=== PATIENT | female | born 1940 | race Caucasian/White ===

== ENCOUNTER 2016-07-19 10:43 | Inpatient (IN) | payer OTHER ==
[2016-07-03 13:04] VITALS: BMI 26.0
[2016-07-19] VITALS (7 sets, daily range): BP systolic 144–187; BP diastolic 76–86; PULSE 77–95; TEMP 36.6–36.8; O2SAT 92–98; Ht 154.9 cm; Wt 63.5 kg
[~2016-07-19] VITALS: Ht 154.9 cm; Wt 63.5 kg
[~2016-07-19 10:43] MED LIST: ADVIN25050 INH; AMLO-114 PO; BNC/40 PO; BYS/5 PO; CALC1TAB62 PO; CEFAZOLIN 2000 MG/60 ML D5W 60 ML IV SCH; DILT120C51 PO; DTRSR10 PO; ERGO1CAP41 PO; EZET10TA47 PO; FENTANYL CITRATE INJ 50 MCG/1 ML 2 ML VIAL ONE; FERR1TAB23 PO; LACTATED RINGER'S 1000ML IV SCH; LVMI SQ; MAGN400T6 PO; MIDAZOLAM HCL 1 MG/ML 2ML VIAL ONE; NTRGSL/4 UT; NVLG SQ; NXM/40 PO; ONDA4TAB46 PO; PLQ200 PO; PREGABALIN 75 MG CAP PO SCH; SYN75 PO; TRAM-10 PO; WARF-246 PO
[2016-07-19] MEDS ORDERED: NIFE30TA83 PO (11:55)
[2016-07-19] MEDS ORDERED: lovenox SC (11:55)
[2016-07-19 12:05] LABS: PARTIAL THROMBOPLASTIN RATIO 1.1; PROTHROMBIN TIME (PATIENT) 10.7 SECONDS (9.0-12.0)
--- NOTE | 2016-07-19 12:24 | History and Physical ---
History & Physical Date Jul 19, 2016. Chief Complaint LBP and severe bilateral leg pain, left greater than right History of Present Illness The patient is a 75 year old female with complaints of above due to a large L3- 4 HNP demonstrated on MRI. she was markedly debilitated as outpatient and had poor pain control. no incontinence. no dona weakness. prior L5 laminectomy and possible L4-5 autofusion. she was on coumadin which was held preop. she was cleared by pcp and deemed intermediate risk by cards for surgery. Past Medical/Surgical History anemia CAD COPD carotid stenosis diabetes reflux hypothyroidism hx of CVA hi chol R CEA michael MENDZE L CEA LTKA Additional History Hepatic Disease: No Endocrine Disorder: Yes Kidney Disease: No Hypertension: Yes Heart Disease: Yes Bleeding Tendencies: No Infectious Diseases: No Allergies Coded Allergies: Sulfa Antibiotics (Verified Allergy, Unknown, RASH AND HIVES, 07/17/16) Home Medications Scheduled Calcium & Phosphorus W/ Vitami (Calcium), 1 TAB PO QAM Ergocalciferol (Vitamin D 31264 Unit), 1 TAB PO SUNDAY Esomeprazole Magnesium (Nexium), 40 MG PO QAM Ezetimibe (Zetia), 10 MG PO QAM Ferrous Sulfate (Iron), 325 MG PO QAM Fluticasone Prop/Salmeterol (Advair Diskus 250/50 Mcg *), 1 PUFF INH BID Hydroxychloroquine Sulfate (Hydroxychloroquine Sulfat), 200 MG PO QAM Insulin Detemir (Levemir), 26 UNITS SQ BID Levothyroxine (Synthroid *), 75 MCG PO HS Magnesium Oxide (Mag-Ox), 400 MG PO QAM Nebivolol Hcl (Bystolic), 5 MG PO QAM Nifedipine Ext Rel (Procardia Xl Ext Rel), 30 MG PO DAILY Nitroglycerin (Nitrostat), 0.4 MG UT PRN Olmesartan Medoxomil (Benicar), 40 MG PO QAM Ondansetron Hcl (Zofran), 4 MG PO Q6HR PRN Oxybutynin Chloride Ext Rel (Ditropan-Xl *), 15 MG PO QAM Tramadol (Ultram), 50 MG PO Q4HR PRN Warfarin Sodium (Warfarin Sodium), 1.5 TAB PO Q2D Warfarin Sodium (Warfarin Sodium), 1 TAB PO Q2D [lovenox], 100 MG SC DAILY Scheduled PRN Insulin Aspart (Novolog), 1 DOSE SQ AC PRN for SLIDING SCALE Physical Examination Skin: warm/dry, no rash Eyes: normal inspection, sclerae normal ENT: normal ENT inspection Head: normocephalic, atraumatic Neck: supple, trachea midline Respiratory/Chest: lungs clear, no respiratory distress Cardiovascular: regular rate, rhythm Back: normal inspection (midline scar) Extremities: normal inspection, normal range of motion Neurologic/Psych: no motor/sensory deficits, alert, normal reflexes, oriented x 3 Diagnosis L3-4 HNP/stenosis/DDD, possible L4-5 autofusion Plan of Treatment L3-4 decompression/fusion, possible L4-5 PSF
[2016-07-19] MEDS ORDERED: HYDROmorphone INJ 2 MG/ML SYR/VIAL ONE (13:06)
[2016-07-19] MEDS ORDERED: ONDANSETRON INJ 2 MG/ML 2 ML VIAL IV PRN ×2 (13:15→14:00)
[2016-07-19] MEDS ORDERED: FENTANYL CITRATE INJ 50 MCG/1 ML 2 ML VIAL IV PRN (13:15)
[2016-07-19] MEDS ORDERED: HYDROmorphone INJ 1 MG/ML SYR IV PRN ×2 (13:15→16:15)
[2016-07-19] MEDS ORDERED: EpHEDrine SULFATE INJ 50 MG/ML AMP IV PRN (13:15)
[2016-07-19] MEDS ORDERED: PROMETHAZINE HCL INJ 6.25 MG in SODIUM CHLORIDE 0.9% 50ML 50 ML IV PRN (13:15)
[2016-07-19] MEDS ORDERED: ATROPINE SULFATE 0.1 MG/ML 5ML SYR IV PRN (13:15)
[2016-07-19] MEDS ORDERED: PROPOFOL IV EMULSION 10 MG/ML 20 ML VIAL IV ONE (13:45)
[2016-07-19] MEDS ORDERED: SODIUM CHLORIDE 0.9% INJ 10 ML VIAL ONE (13:45)
[2016-07-19] MEDS ORDERED: ROCURONIUM BROMIDE 10 MG/ML 5 ML VIAL ONE (13:45)
[2016-07-19] MEDS ORDERED: PHENYLEPHRINE HCL INJ 10 MG/ML VIAL ONE (13:45)
[2016-07-19] MEDS ORDERED: NEOSTIGMINE METHYLSULFATE 5 MG/5 ML SYR ONE (13:45)
[2016-07-19] MEDS ORDERED: GLYCOPYRROLATE INJ 0.2 MG/ML VIAL ONE (13:45)
[2016-07-19] MEDS ORDERED: LIDOCAINE HCL 2% 2 ML VIAL (20MG/ML) ONE (13:45)
[2016-07-19] MEDS ORDERED: BUPIVACAINE/EPINEPHRINE 0.5% MPF 1:200,000 30 ML VIAL INJ ONE (13:59)
[2016-07-19] MEDS ORDERED: BACITRACIN 50000 UNIT VIAL IR ONE (13:59)
[2016-07-19] MEDS ORDERED: THROMBIN FOR SOLN 20000 UNIT KIT TOP ONE (13:59)
[2016-07-19] MEDS ORDERED: FLOSEAL HEMOSTATIC MATRIX 10ML TOP ONE (13:59)
[2016-07-19] MEDS ORDERED: METOCLOPRAMIDE HCL INJ 5 MG/ML 2 ML VIAL IV PRN (14:00)
[2016-07-19] MEDS ORDERED: BISACODYL 10 MG SUPP PR PRN (14:00)
[2016-07-19] MEDS ORDERED: SOD PHOSPHATE/SOD BIPHOSPHATE ENEMA 132 ML BTL PR PRN (14:00)
[2016-07-19] MEDS ORDERED: NALOXONE HCL 0.4 MG/1 ML VIAL/CARP IV PRN (14:00)
[2016-07-19] MEDS ORDERED: FAMOTIDINE 20 MG TAB PO PRN (14:00)
[2016-07-19] MEDS ORDERED: NITROGLYCERIN 0.4 MG SL PER TAB CHARGE UT PRN (14:00)
[2016-07-19] MEDS ORDERED: ALUMINUM/MAGNESIUM SUSP 30 ML UDC PO PRN (14:00)
[2016-07-19] MEDS ORDERED: PROMETHAZINE HCL INJ 12.5 MG in SODIUM CHLORIDE 0.9% 50ML 50 ML IV PRN (14:00)
[2016-07-19] MEDS ORDERED: MAGNESIUM HYDROXIDE SUSP 30 ML UDC PO PRN (14:00)
--- NOTE | 2016-07-19 14:02 | Discharge Instructions ---
Discharge Instructions Admission Reason for Admission: Spinal Stenosis Discharge Discharge Diagnosis / Problem: Lumbar Herniated Disc Discharge Goals Goal(s): Decrease discomfort, Improve function, Increase independence Activity Recommendations Activity Limitations: as noted below Lifting Limitations: no more than 5 pounds Exercise/Sports Limitations: until after follow-up appointment May Resume Sexual Activity: after follow-up appointment Shower/Bathe: may shower/bathe in 3 days . Instructions / Follow-Up Instructions / Follow-Up ACTIVITY RECOMMENDATIONS: SELF CARE INSTRUCTIONS AFTER THORACIC/LUMBAR FUSIONS 1. You may walk to your tolerance. It is good exercise for your legs and back. Expect some back and intermittent leg aches and pains. 2. You may perform "counter-top" level activities (make a sandwich, jeffery with a project, etc.). 3. No bending or lifting of more than 10 pounds or back twisting of any nature (roll like a log when turning in bed). 4. You may ride in a car for 20-30 minutes at a time. No driving until after your first visit with your doctor. 5. Frequent changes of position and restricting sitting to 30 minutes at a time will help limit the amount of back spasms and stiffness you may experience. 6. You may discontinue the use of ambulatory aids (cane, crutches, etc.) once your strength and confidence allow. 7. You may bar tacker sewing machine the shower and let water strike your incision when you arrive home at least once daily. Do not take a tub bath, sit in a hot tub or go into a swimming pool until after your first recheck in the office. SPECIAL CARE INSTRUCTIONS: VERY IMPORTANT TO READ AND REVIEW A. Your surgical incision has been closed with a cosmetic suture under the skin that will dissolve in about 6 weeks. In 14 days, you can use a pair of clean scissors and cut the suture that is left outside of the skin at the ends of your incision. 1. The small skin tapes can be removed 7 days after surgery if they have not fallen off by that point. 2. You may keep the wound open to air as much as possible to promote healing after post-op day number 5 unless told otherwise by your doctor. 3. If you think the wound looks like it is becoming infected (redness or worsening drainage) and/or you are experiencing fever, chill or worsening back pain and muscle spasms, contact the office so that we may evaluate you as soon as possible. B. Complications are uncommon, but please contact us if you have any signs or symptoms of: 1. wound infection (fever higher than 102.5 degrees F, redness, separation of wound, drainage, or increasing pain from the incision) 2. blood clots in legs (pain, swelling, redness and warmth in legs) 3. urinary tract infection (fever higher than 102.5 degrees F, burning upon urination or increased frequency of urination) 4. nerve problems (inability to walk on your toes or heels, numbness, loss of bowel or bladder control) 5. any other symptoms that concern you C. Please call the office at if you have any concerns or questions about your operation or recovery. D. No smoking! Smoking drastically decreases the chance of a solid fusion. E. Do not take any anti-inflammatory medications (Indocin, Advil, Motrin, Aspirin, Naprosyn, etc.) as these may inhibit the chance of a solid fusion. Tylenol is okay to take for pain. MANAGING PAIN AFTER SPINAL SURGERY 1. Narcotic medication is intended for short-term use and will be provided for surgical pain. Surgical pain usually lasts for a period of 4-6 weeks. Narcotic medication includes Percocet, Vicodin, Darvocet, Tylenol #3 or Lortab. 2. Longer-term pain is more appropriately treated with non-narcotic medication such as Tylenol ES. 3. Muscle spasm is not appropriately treated with narcotics. Muscle relaxers such as Soma, Flexeril or Skelaxin can be used along with Tylenol ES. 4. Remember that we all live with some "aches and pains". This is not unusual or uncommon after an injury or as we get older. a. Back pain is expected and may include muscle spasms for 4 to 6 weeks after surgery. The pain should gradually improve. If the pain worsens for no apparent reason, please contact the office. b. Intermittent leg pain may also be experienced and should not be concerned about unless it worsens for no apparent reason. If so, please contact the office. 5. We will provide appropriate medication within the normal guidelines of their prescribed use. We will also be very cautious and aware of potential abuse and extended duration of patients' medication needs. a. Pain medications are for your comfort and to assist with sleep and rest so that the tissue can heal. They are not provided in order to return to normal activity and should not be used through the day. To do so or worsening pain at night can result from ongoing tissue damage and development of tolerance to the prescribed medicine. 6. Please allow 2-3 days to process refills. Prescriptions will not be mailed but must be picked up at the office. FOLLOW UP VISIT: Keep your scheduled follow-up appointment. Any questions, please call the office at . Current Hospital Diet Patient's current hospital diet: Diabetes Type 2 Diet Discharge Diet Recommended Diet: Regular Diet Procedures Procedures Performed: L3-L4 decompression and instrumented fusion; possible Interbody Fusion with use of Infuse, arteriocyte, and Allograft Pending Studies Studies pending at discharge: no Medical Emergencies . Who to Call and When: Medical Emergencies: If at any time you feel your situation is an emergency, please call 911 immediately. . Non-Emergent Contact Non-Emergency issues call your: Surgeon Call Non-Emergent contact if: temperature is above 101, your pain is not controlled, your pain is worsening, your pain is unusual for you, your pain is concerning you, wound has increased drainage, wound has increased redness, wound has increased pain, you have any medication questions . "Provider Documentation" section prepared by Iggy Bass. VTE Core Measure Inpt VTE Proph given/why not?: Sadiq Estrada
--- NOTE | 2016-07-19 14:24 | DIAGNOSTIC IMAGING REPORT ---
INTRAOPERATIVE LUMBAR SPINE 2 VIEWS CLINICAL HISTORY: L3-4 spinal decompression and fusion COMPARISON STUDY: No previous studies for comparison. FINDINGS: 6 seconds of fluoroscopic time was utilized. 2 intraoperative fluoroscopic spot images are provided for interpretation. These demonstrate postsurgical changes the L3-4 level with pedicle screws and adjoining spinal rods. An overlying tubular structure anterior to the vertebral bodies, likely represents a vascular stent. IMPRESSION: Postsurgical changes the L3-4 level. Electronically signed by: Jordan Do M.D. 07/19/2016 2:22 PM Dictated Date/Time: 07/19/2016 2:21 PM
[2016-07-19] MEDS ORDERED: HYDROmorphone INJ 0.5 MG/0.5 ML SYR ONE (14:45)
--- NOTE | 2016-07-19 15:23 | Anesthesiology Progress Note ---
Anesthesia Post Op Note Date & Time Jul 19, 2016 at 15:22 Vital Signs Pain Intensity: 4 Vital Signs Past 12 Hours Date Time Temp Pulse Resp B/P Pulse Ox O2 Delivery O2 Flow Rate FiO2 07/19/16 15:15 37.0 88 13 161/72 97 Nasal Cannula 2 07/19/16 15:05 85 14 160/83 96 Nasal Cannula 2 07/19/16 14:55 87 17 168/74 97 Nasal Cannula 4 07/19/16 14:45 82 12 179/78 96 Nasal Cannula 4 07/19/16 14:35 81 12 160/83 99 Mask 10 07/19/16 14:25 83 12 193/78 97 Mask 10 07/19/16 14:16 37.1 84 16 196/78 98 Mask 10 07/19/16 11:25 36.6 77 22 185/86 93 Room Air Notes Mental Status: alert / awake / arousable, participated in evaluation Pt Amnestic to Procedure: Yes Nausea / Vomiting: adequately controlled Pain: adequately controlled Airway Patency, RR, SpO2: stable & adequate BP & HR: stable & adequate Hydration State: stable & adequate Anesthetic Complications: no major complications apparent nausea improved with treatment
[2016-07-19] MEDS: LACTATED RINGER'S 1000ML 1,000 ML IV SCH (16:12)
[2016-07-19] MEDS ORDERED: GLUCOSE 40% GEL 15 GM TUBE PO PRN (17:15)
[2016-07-19] MEDS ORDERED: GLUCAGON FOR INJ 1 MG VIAL SQ PRN (17:15)
[2016-07-19] MEDS ORDERED: GLUCOSE 10 TABS/TUBE PO PRN (17:15)
[2016-07-19] MEDS ORDERED: DEXTROSE 50% 50 ML SYR IV PRN (17:15)
--- NOTE | 2016-07-19 17:22 | Medical Consult ---
Consultation Date of Consultation: Jul 19, 2016. Attending Physician: Taqueria Desai M.D. Reason for Consultation: Postop medical management History of Present Illness Patient seen and examined. Family present at bedside. Pt underwent lumbar decompression/ fusion by Dr. Crespo. Postoperatively patient developed nausea and vomiting. She received a dose of Zofran but continued with dry heaving. She received Phenergan while I was in the room and is starting to improve. She admits to some postop discomfort in the back as well. Denies dizziness, chest pain, SOB, abdominal pain, numbness, weakness. Her states she was placed on Coumadin for history of presumed embolic stroke in 2012. She also was found to have a chronic DVT of left leg in spring 2015 as per . Pt instructed for Lovenox bridge by PCP. Past Medical/Surgical History Medical Problems: (1) CAD (coronary artery disease) Status: Chronic (2) Carotid artery disease Status: Chronic (3) COPD (chronic obstructive pulmonary disease) Status: Chronic (4) CVA (cerebral vascular accident) Permanent Comment: 03/2013 Status: Chronic (5) DM type 2 (diabetes mellitus, type 2) Status: Chronic (6) Dyslipidemia Permanent Comment: hx of myalgia on statins Status: Chronic (7) GERD (gastroesophageal reflux disease) Status: Chronic (8) History of DVT (deep vein thrombosis) Status: Chronic (9) HTN (hypertension) Status: Chronic (10) Hypothyroidism Status: Chronic (11) PVD (peripheral vascular disease) Status: Chronic (12) TIA (transient ischemic attack) Permanent Comment: 2007 Status: Chronic Surgical Problems: (1) H/O vascular surgery Permanent Comment: PCI right common iliac Status: Chronic (2) History of back surgery Status: Chronic (3) History of bladder surgery Status: Chronic (4) History of section Status: Chronic (5) History of hysterectomy Status: Chronic (6) History of percutaneous coronary intervention Permanent Comment: BMS to RCA 06/11/2007 Status: Chronic (7) S/p bilateral carotid endarterectomy Status: Chronic (8) S/P cholecystectomy Status: Chronic (9) Status post left knee replacement Status: Chronic Family History Noncontributory. Social History Smoking Status: Former Smoker Marital Status: Housing Status: lives with family Allergies Coded Allergies: Sulfa Antibiotics (Verified Allergy, Unknown, RASH AND HIVES, 07/17/16) Home Medications Active Reported [lovenox] 100 Mg SC DAILY Procardia Xl Ext Rel (Nifedipine) 30 Mg Tabcr 30 Mg PO DAILY Novolog (Insulin Aspart) 100 Units/Ml Inj 1 Dose SQ AC PRN Levemir (Insulin Detemir) 100 Units/Ml Inj 26 Units SQ BID Hydroxychloroquine Sulfat (Hydroxychloroquine Sulfate) 200 Mg Tab 200 Mg PO QAM Calcium (Calcium & Phosphorus W/ Vitami) 1 Tab Tab 1 Tab PO QAM Nexium (Esomeprazole Magnesium) 40 Mg Capcr 40 Mg PO QAM Zetia (Ezetimibe) 10 Mg Tab 10 Mg PO QAM Bystolic (Nebivolol Hcl) 5 Mg Tab 5 Mg PO QAM Iron (Ferrous Sulfate) 325 Mg Tab 325 Mg PO QAM Vitamin D 68536 Unit (Ergocalciferol) 50,000 Unit Cap 1 Tab PO SUNDAY Warfarin Sodium 5 Mg Tab 1 Tab PO Q2D Warfarin Sodium 5 Mg Tab 1.5 Tab PO Q2D WILL BE SEEING DR ESTEVES AND WILL BRIDGE PATIENT Benicar (Olmesartan Medoxomil) 40 Mg Tab 40 Mg PO QAM Mag-Ox (Magnesium Oxide) 400 Mg Tab 400 Mg PO QAM Synthroid * (Levothyroxine Sodium) 0.075 Mg Tab 75 Mcg PO HS Zofran (Ondansetron HCl) 4 Mg Tab 4 Mg PO Q6HR PRN Ultram (Tramadol HCl) 50 Mg Tab 50 Mg PO Q4HR PRN PRN PAIN Advair Diskus 250/50 Mcg * (Salmeterol Xinafoate/Fluticasone) Aerp 1 Puff INH BID Ditropan-Xl * (Oxybutynin Chloride) 10 Mg Tabcr 15 Mg PO QAM Nitrostat (Nitroglycerin) 0.4 Mg Tab 0.4 Mg UT PRN Current Inpatient Medications Current Inpatient Medications Medications (Trade) Dose Ordered Sig/Marino Route Start Time Stop Time Status Last Admin Dose Admin Lactated Ringer's 1,000 ml @ 15 mls/hr Q24H IV 07/19/16 06:00 07/20/16 05:59 07/19/16 11:16 15 MLS/HR Cefazolin Sodium (Ancef 2000mg/60 ml D5W) 60 ml @ 100 mls/hr PREOP IV 1/11/17 06:00 07/19/16 18:00 07/19/16 12:44 100 MLS/HR Pregabalin (Lyrica Cap) 75 mg PREOP PO 07/19/16 06:00 07/19/16 18:00 07/19/16 11:18 75 MG Fentanyl Citrate (Fentanyl Inj) 50 mcg Q5M PRN IV 07/19/16 13:15 07/19/16 18:15 07/19/16 14:30 50 MCG Hydromorphone HCl 0.5 mg 0.5 mg Q5M PRN IV 07/19/16 13:15 07/19/16 18:15 07/19/16 14:55 0.25 MG Promethazine HCl/ Sodium Chloride (Phenergan Inj/ Nss 50ml) 50.25 ml @ 202 mls/hr ONE PRN IV 07/19/16 13:15 07/19/16 18:15 Ephedrine Sulfate (EpHEDrine SULFATE INJ) 5 mg Q5M PRN IV 07/19/16 13:15 07/19/16 18:15 Atropine Sulfate (Atropine Sulfate 0.1MG/Ml Inj) 0.5 mg Q1M PRN IV 07/19/16 13:15 07/19/16 18:15 Pantoprazole Sodium (Protonix Tab) 40 mg QAM PO 07/20/16 09:00 08/19/16 08:59 EZETIMIBE (Zetia Tab) 10 mg QAM PO 07/20/16 09:00 08/19/16 08:59 Salmeterol Xinafoate/ Fluticasone (Advair Diskus 250/50 Inh) 1 puff BID INH 07/19/16 21:00 08/18/16 20:59 Hydroxychloroquine Sulfate (Plaquenil Tab) 200 mg QAM PO 07/20/16 09:00 08/19/16 08:59 Levothyroxine Sodium (Synthroid Tab) 75 mcg HS PO 07/19/16 21:00 08/18/16 20:59 Magnesium Oxide (Mag-Ox Tab) 400 mg QAM PO 07/20/16 09:00 08/19/16 08:59 Nifedipine (Procardia Xl Tab) 30 mg DAILY PO 07/20/16 09:00 08/19/16 08:59 Nitroglycerin (Nitrostat Tab) 0.4 mg UD PRN UT 07/19/16 14:00 08/18/16 13:59 Olmesartan (Benicar Tab) 40 mg QAM PO 07/20/16 09:00 08/19/16 08:59 Oxybutynin Chloride 15 mg 15 mg QAM PO 07/20/16 09:00 08/19/16 08:59 Promethazine HCl/ Sodium Chloride (Phenergan Inj/ Nss 50ml) 50.5 ml @ 202 mls/hr Q6H PRN IV 07/19/16 14:00 08/18/16 13:59 07/19/16 16:12 202 MLS/HR Ondansetron HCl (Zofran Inj) 4 mg Q6H PRN IV 07/19/16 14:00 08/18/16 13:59 Metoclopramide HCl 10 mg 10 mg Q6H PRN IV 07/19/16 14:00 08/18/16 13:59 Lactated Ringer's (Lr 1000ml) 1,000 ml @ 75 mls/hr [id number] IV 07/19/16 13:53 08/18/16 13:52 07/19/16 16:12 75 MLS/HR Polyethylene (Miralax Powder Packet) 17 gm Q6 PO 07/21/16 06:00 08/20/16 05:59 Bisacodyl (Dulcolax Supp) 10 mg DAILY PRN UT 07/19/16 14:00 08/18/16 13:59 Magnesium Hydroxide (Milk Of Magnesia Susp) 30 ml DAILY PRN PO 07/19/16 14:00 08/18/16 13:59 Hydromorphone HCl (Dilaudid Inj) 0.5 mg Q3H PRN IV 07/19/16 14:00 08/02/16 13:59 Oxycodone HCl 5-10mg prn moderate to sev... Q4H PRN PO 07/20/16 06:00 08/03/16 05:59 Cefazolin Sodium/ Dextrose (Ancef Iv/D5 50ml) 55 ml @ 100 mls/hr Q8H IV 07/19/16 20:00 07/20/16 04:32 Acetaminophen (Tylenol Tab) 1,000 mg Q8H PRN PO 07/19/16 14:00 08/18/16 13:59 Naloxone HCl (Narcan Inj) 0.1 mg Q5M PRN IV 07/19/16 14:00 08/18/16 13:59 Senna/Docusate Sodium (Senokot S Tab) 2 tab HS PO 07/19/16 21:00 08/18/16 20:59 Sodium Biphosphate/ Sodium Phosphate (Fleet Enema) 132 ml ONE PRN UT 07/19/16 14:00 08/18/16 13:59 Al Hydroxide/Mg Hydroxide (Maalox Susp) 30 ml Q6H PRN PO 07/19/16 14:00 08/18/16 13:59 Famotidine (Pepcid Tab) 20 mg Q12 PRN PO 07/19/16 14:00 08/18/16 13:59 Hydromorphone HCl (Dilaudid Inj) 1 mg Q3H PRN IV 07/19/16 16:15 08/02/16 16:14 Review of Systems Ten points reviewed with pertinent positives and negatives in HPI. All other systems negative. Physical Exam Date Time Temp Pulse Resp B/P Pulse Ox O2 Delivery O2 Flow Rate FiO2 07/19/16 16:26 36.7 91 18 176/83 98 Nasal Cannula 2.0 07/19/16 15:30 84 15 174/82 97 Nasal Cannula 2 07/19/16 15:15 37.0 88 13 161/72 97 Nasal Cannula 2 07/19/16 15:05 85 14 160/83 96 Nasal Cannula 2 07/19/16 14:55 87 17 168/74 97 Nasal Cannula 4 07/19/16 14:45 82 12 179/78 96 Nasal Cannula 4 07/19/16 14:35 81 12 160/83 99 Mask 10 07/19/16 14:25 83 12 193/78 97 Mask 10 07/19/16 14:16 37.1 84 16 196/78 98 Mask 10 07/19/16 11:25 36.6 77 22 185/86 93 Room Air General Appearance: WD/WN, + pertinent finding (moderate distress due to nausea / dry heaving) Head: normocephalic, atraumatic Eyes: normal inspection, sclerae normal ENT: hearing grossly normal Neck: supple, trachea midline Respiratory/Chest: lungs clear, normal breath sounds, no respiratory distress Cardiovascular: regular rate, rhythm, no murmur Abdomen/GI: normal bowel sounds, non tender, soft Genitourinary - Female: + pertinent finding (de oliveira catheter draining clear yellow urine) Back: + pertinent finding (s/p lumbar decompression/ fusion. drain in place with sanguinous drainage.) Extremities/Musculoskelatal: normal inspection, no calf tenderness, no pedal edema Neurologic/Psych: alert, normal mood/affect, oriented x 3, + pertinent finding (able to flex/ extend bilateral ankles. sensation to light touch intact bilateral feet.) Skin: normal color, warm/dry Laboratory Results Last 24 Hours Test 07/19/16 11:09 07/19/16 11:21 07/19/16 14:25 Bedside Glucose 155 mg/dl 138 mg/dl Prothrombin Time 10.7 SECONDS Prothromb Time International Ratio 1.0 Activated Partial Thromboplast Time 29.7 SECONDS Partial Thromboplastin Ratio 1.1 Assessment & Plan S/P LUMBAR DECOMPRESSION/ FUSION POD #[address] 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) HISTORY OF LLE DVT (2015) On chronic Coumadin- instructed to bridge with Lovenox by PCP Resume Coumadin and Lovenox when acceptable by surgery- continue both until INR >2 for two days HYPERTENSION BP is elevated 160s-190s postop Will give 1 dose lisinopril 5 mg Continue Bystolic, nifedipine, olmesartan DM TYPE 2 Hold home long acting insulin due to N/V Insulin sliding scale coverage CAD Stable Continue BB, ARB Not on statin due to hx myalgia with statin COPD Not in acute exacerbation Continue home inhaler HYPOTHYROIDISM Continue levothyroxine DISPOSITION Per ortho Patient seen in collaboration with Dr. Lowe. Please see his addendum. ATTENDING NOTE Patient seen & examined at bedside. Reviewed the above consult note and confirmed all the findings in person. Patient has been c/o nausea post-operatively which is gradually improving. Her BP has been running on higher side. Pain has been tolerable. Gave one dose of Lisinopril 5 mg PO X one dose. Continue Zofran and Phenergan overnight. Monitor vitals closely. Reviewed all the home medications. Thank you for this consultation. We will follow the patient with you during their hospital stay. You can reach a member of the [facility] Hospitalist Team 29/01 via pager @ . Patient will be followed by Dr. Rinaldi. Nash Lowe MD
[2016-07-19] MEDS ORDERED: LISINOPRIL 5 MG TAB PO ONE (17:45)
[2016-07-19] MEDS: PROMETHAZINE HCL INJ 12.5 MG in SODIUM CHLORIDE 0.9% 50ML 50 ML IV SCH ×2 (18:01→23:15)
[2016-07-19] MEDS: INSULIN ASPART 100 UNITS/ML 3 ML PEN SC SCH ×2 (18:50→21:03)
[2016-07-19] MEDS: OXYCODONE HCL IR 5 MG TAB (IMMEDIATE RELEASE) PO PRN ×2 (18:51→23:25)
[2016-07-19] MEDS: CEFAZOLIN IV 1,000 MG in DEXTROSE 5% 50ML 50 ML IV SCH (20:59)
[2016-07-19] MEDS: FLUTICASONE/SALMETEROL 250/50 (ADVAIR) 14 PUFF/1 INHALER INH SCH (21:00)
[2016-07-19] MEDS: LEVOTHYROXINE 75 MCG TAB PO SCH (21:01)
[2016-07-19] MEDS: DOCUSATE SODIUM/SENNA 50/8.6MG TAB PO SCH (21:01)
[2016-07-20] VITALS (7 sets, daily range): BP systolic 125–150; BP diastolic 65–78; PULSE 83–88; TEMP 36.4–37.4; O2SAT 89–99
[2016-07-20] MEDS: LACTATED RINGER'S 1000ML 1,000 ML IV SCH (02:45)
[2016-07-20] MEDS: OXYCODONE HCL IR 5 MG TAB (IMMEDIATE RELEASE) PO PRN ×4 (04:37→21:53)
[2016-07-20] MEDS: CEFAZOLIN IV 1,000 MG in DEXTROSE 5% 50ML 50 ML IV SCH (04:37)
[2016-07-20 05:48] LABS: BASO % 0.1 %; BASO ABS # 0.01 K/uL (0-0.2); COMPLETE YES; HEMATOCRIT 39.6 % (37-47); IG% 0.1 %; LYMPH % 8.9 %; LYMPH ABS # 0.74 K/uL (1.2-3.4); MEAN CELL VOLUME 88.2 fL (80-100); MEAN CORPUSCULAR HEMOGLOBIN 30.3 pg (25-34); MEAN CORPUSCULAR HGB CONC 34.3 g/dl (32-36); MEAN PLATELET VOLUME 9.3 fL (7.4-10.4); MONO % 5.3 %; NEUT % 85.6 %; PLATELET COUNT 239 K/uL (130-400); RED BLOOD COUNT 4.49 M/uL (4.2-5.4); WHITE BLOOD COUNT 8.28 K/uL (4.8-10.8)
[2016-07-20] MEDS: PROMETHAZINE HCL INJ 12.5 MG in SODIUM CHLORIDE 0.9% 50ML 50 ML IV SCH (06:00)
[2016-07-20] MEDS ORDERED: OXYCODONE HCL IR 5 MG TAB (IMMEDIATE RELEASE) PO PRN (06:00)
[2016-07-20 06:16] LABS: BUN/CREATININE RATIO 11.7 (10-20); CALCIUM 8.6 mg/dl (8.5-10.1); CREATININE 1.1 mg/dl (0.60-1.20); POTASSIUM 3.8 mmol/L (3.5-5.1)
[2016-07-20] MEDS: ACETAMINOPHEN 500 MG TAB PO PRN (07:20)
--- NOTE | 2016-07-20 07:53 | Anesthesiology Progress Note ---
Anesthesia Post Op Note Date & Time Jul 20, 2016 at 07:52 Vital Signs Pain Intensity: 5.0 Vital Signs Past 12 Hours Date Time Temp Pulse Resp B/P Pulse Ox O2 Delivery O2 Flow Rate FiO2 07/20/16 07:01 36.8 85 16 148/75 99 2.0 07/20/16 03:42 36.7 88 16 127/75 89 Room Air 07/19/16 23:23 36.7 86 16 144/82 92 Room Air 07/19/16 23:20 Room Air Notes Mental Status: alert / awake / arousable, participated in evaluation Pt Amnestic to Procedure: Yes Nausea / Vomiting: adequately controlled Pain: adequately controlled Airway Patency, RR, SpO2: stable & adequate BP & HR: stable & adequate Hydration State: stable & adequate Anesthetic Complications: no major complications apparent
[2016-07-20] MEDS: FLUTICASONE/SALMETEROL 250/50 (ADVAIR) 14 PUFF/1 INHALER INH SCH ×2 (08:46→21:48)
[2016-07-20] MEDS: NEBIVOLOL HCL 5 MG TAB PO SCH (08:47)
[2016-07-20] MEDS: OLMESARTAN MEDOXOMIL 40 MG TAB PO SCH (08:47)
[2016-07-20] MEDS: OXYBUTYNIN CHLORIDE 5 MG TABCR PO SCH (08:47)
[2016-07-20] MEDS: EZETIMIBE 10MG TAB PO SCH (08:47)
[2016-07-20] MEDS: HYDROXYCHLOROQUINE SULFATE 200 MG TAB PO SCH (08:47)
[2016-07-20] MEDS: NIFEdipine 30 MG CR TAB PO SCH (08:47)
[2016-07-20] MEDS: PANTOprazole SOD 40 MG TAB PO SCH (08:47)
[2016-07-20] MEDS: MAGNESIUM OXIDE 400 MG TAB PO SCH (08:48)
[2016-07-20] MEDS: INSULIN ASPART 100 UNITS/ML 3 ML PEN SC SCH ×4 (09:06→21:45)
--- NOTE | 2016-07-20 12:20 | Orthopedic Progress Note ---
Orthopedic Progress Note Date of Service Jul 20, 2016. Subjective Post OP Day: 1 Reports: feeling well, pain controlled w PO medications, Denies: SOB, calf pain , chest pain, complaints, light headedness, nausea / vomiting, using [employer] Objective calves soft nontender, N/V intact, dressing C/D/I, A&O x3, hemovac drainage Date Time Temp Pulse Resp B/P Pulse Ox O2 Delivery O2 Flow Rate FiO2 07/20/16 11:17 36.4 85 16 150/76 90 Room Air 07/20/16 07:15 Nasal Cannula 2.0 07/20/16 07:01 36.8 85 16 148/75 99 2.0 07/20/16 03:42 36.7 88 16 127/75 89 Room Air 07/19/16 23:23 36.7 86 16 144/82 92 Room Air 07/19/16 23:20 Room Air 07/19/16 19:07 36.7 93 18 151/80 96 Room Air 07/19/16 17:58 36.8 89 18 147/76 96 Nasal Cannula 2.0 07/19/16 16:58 97 Nasal Cannula 2.0 07/19/16 16:56 95 18 187/84 98 Nasal Cannula 2.0 07/19/16 16:26 36.7 91 18 176/83 98 Nasal Cannula 2.0 07/19/16 15:55 97 Nasal Cannula 2.0 07/19/16 15:30 84 15 174/82 97 Nasal Cannula 2 07/19/16 15:15 37.0 88 13 161/72 97 Nasal Cannula 2 07/19/16 15:05 85 14 160/83 96 Nasal Cannula 2 07/19/16 14:55 87 17 168/74 97 Nasal Cannula 4 07/19/16 14:45 82 12 179/78 96 Nasal Cannula 4 07/19/16 14:35 81 12 160/83 99 Mask 10 07/19/16 14:25 83 12 193/78 97 Mask 10 07/19/16 14:16 37.1 84 16 196/78 98 Mask 10 Laboratory Results 24 Hours: Test 07/20/16 05:35 White Blood Count 8.28 K/uL Red Blood Count 4.49 M/uL Hemoglobin 13.6 g/dL Hematocrit 39.6 % Mean Corpuscular Volume 88.2 fL Mean Corpuscular Hemoglobin 30.3 pg Mean Corpuscular Hemoglobin Concent 34.3 g/dl Platelet Count 239 K/uL Mean Platelet Volume 9.3 fL Neutrophils (%) (Auto) 85.6 % Lymphocytes (%) (Auto) 8.9 % Monocytes (%) (Auto) 5.3 % Eosinophils (%) (Auto) 0.0 % Basophils (%) (Auto) 0.1 % Neutrophils # (Auto) 7.08 K/uL Lymphocytes # (Auto) 0.74 K/uL Monocytes # (Auto) 0.44 K/uL Eosinophils # (Auto) 0.00 K/uL Basophils # (Auto) 0.01 K/uL Assessment & Plan Assessment: doing well. start PT home fri or sat? Discharge Planning Discharge Planning: home Pain Management: Oxy IR DVT Prophylaxis: SCDs
[2016-07-20] MEDS ORDERED: NURSING VERBAL MED ORDER ONE (12:45)
[2016-07-20] MEDS ORDERED: INSULIN GLARGINE PER UNIT 10 UNITS in SYRINGE 0 ML SC STA (13:14)
[2016-07-20] MEDS ORDERED: PHARMACY GLYCEMIC MGMT CONSULT PRN (13:33)
[2016-07-20] MEDS ORDERED: INSULIN GLARGINE SOLOSTAR 100 UNITS/ML 3 ML PEN SC SCH (13:45)
[2016-07-20] MEDS ORDERED: INSULIN GLARGINE SOLOSTAR 100 UNITS/ML 3 ML PEN SC ONE (14:00)
[2016-07-20 14:20] LABS: ESTIMATED AVERAGE GLUCOSE 123 mg/dl; HA1C FLAG Normal (Normal)
--- NOTE | 2016-07-20 14:45 | Pharmacy Progress Note ---
Glycemic Control Intl Consult Date of Service Jul 20, 2016. Scope Glycemic Pharmacist consulted by Dr Rinaldi on 07/20 for glycemic control and to write orders per formerly [facility] inpatient glycemic control protocol Objective Weight (Kilograms): 63.500 Accuchecks BSG (last 24hrs): Test 07/19/16 16:41 07/19/16 20:38 07/20/16 05:35 Bedside Glucose 205 mg/dl (70-90) 233 mg/dl (70-90) Random Glucose 218 mg/dl (70-99) Laboratory Data (last 24hrs) Test 07/20/16 05:35 Anion Gap 11.0 mmol/L BUN/Creatinine Ratio 11.7 Blood Urea Nitrogen 13 mg/dl Creatinine 1.10 mg/dl Hemoglobin A1c 5.9 % Potassium Level 3.8 mmol/L Sodium Level 137 mmol/L White Blood Count 8.28 K/uL Red Blood Count 4.49 M/uL Hemoglobin 13.6 g/dL Hematocrit 39.6 % Mean Corpuscular Volume 88.2 fL Mean Corpuscular Hemoglobin 30.3 pg Mean Corpuscular Hemoglobin Concent 34.3 g/dl Platelet Count 239 K/uL Mean Platelet Volume 9.3 fL Neutrophils (%) (Auto) 85.6 % Lymphocytes (%) (Auto) 8.9 % Monocytes (%) (Auto) 5.3 % Eosinophils (%) (Auto) 0.0 % Basophils (%) (Auto) 0.1 % Neutrophils # (Auto) 7.08 K/uL Lymphocytes # (Auto) 0.74 K/uL Monocytes # (Auto) 0.44 K/uL Eosinophils # (Auto) 0.00 K/uL Basophils # (Auto) 0.01 K/uL HbA1c Test 07/20/16 05:35 Hemoglobin A1c 5.9 % (4.5-5.6) H Recent Pertinent Medications Outpatient Anti-diabetic Regimen: * Levemir 26 units SC BID (last dose 07/18 @ 2100) * Novolog AC * A1c = pending (none in history) The patient is currently receiving: * Basal insulin: None * Correctional Insulin: Novolog Correction per scale ACHS Goal Range: Low 100 mg/dL - High 140 mg/dL Correction Factor: 30 mg/dL/unit * Prandial insulin: Per carb ratio of 1 unit per 10 grams CHO consumed * Oral Agents: None Risk Factors for Insulin Resistance: * Recent Surgery: POD 1 s/p lumbar decompression/fusion * Diet: T2DM Assessment & Plan ASSESSMENT: * ADA & AACE recommend a goal blood sugar range 140-180 mg/dl for the majority of critically ill & non-critically ill patients. However, more stringent targets may be selected in individual cases. * 75 yo F with T2DM s/p lumber decompression/fusion on 07/19 with hyperglycemia 2nd no basal insulin administered for >36 hours * Glycemic history limited as A1c is pending and patient only has one admission on record back in 2010 - was not on basal insulin at that time * Unclear what percentage of total daily insulin dose is administered as basal vs. bolus as outpatient, but his could be heavily weighted towards basal insulin which is inappropriate for inpatient management. Patient likely receives a minimum of 52 units of insulin daily per med rec. Will therefore target an inpatient basal dose at slightly less than 50% of this outpatient dose. Of note, ordered maintenance dose will be similar to weight-based estimate. * Will start Lantus at slightly higher dose x1 2nd long duration without basal insulin then continue with maintenance as above * Will continue Novolog correction factor and carb ratio - slightly tighter than weight-based estimate for now 2nd hyperglycemia * Will increase goal range to prevent hypoglycemia in an elderly patient with unknown A1c and degree of insulin sensitivity * Will consider overnight BSG check if BSG's remain significantly elevated PLAN FOR INPATIENT GLYCEMIC CONTROL: * Initiate basal insulin with LANTUS 15 units SQ x1 then 10 units SC BID - hold for BSG < 120 mg/dL * Correctional Insulin with NOVOLOG per scale ACHS or Q6hrs while NPO - may consider overnight check as well * Increase Goal Range: Low 120 mg/dL - High 150 mg/dL * Correction Factor: 30 mg/dL/unit * Nutritional / Prandial insulin per carb ratio of 1 unit per 10 grams CHO consumed * Please note that the plan above was derived based on current level of insulin resistance and hospital stress. These recommendations are appropriate for inpatient admission only. Plan of care upon discharge will need to be reassessed to avoid potential outpatient hypo/hyperglycemia. Thank you.
--- NOTE | 2016-07-20 18:06 | Progress Note ---
Internal Med Progress Note Date of Service: Jul 20, 2016. Provider Documentation: SUBJECTIVE: minimum back pain no SOB or chest pain no fever or chills OBJECTIVE: Vital Signs-as noted below Exam: General Appearance: no apparent distress Head: normocephalic, atraumatic Eyes: normal inspection, sclerae normal ENT: hearing grossly normal Neck: supple, trachea midline Respiratory/Chest: lungs clear, normal breath sounds, no respiratory distress Cardiovascular: regular rate, rhythm, no murmur Abdomen/GI: normal bowel sounds, non tender, soft Back: + pertinent finding s/p lumbar decompression/ fusion. drain in place with sanguinous drainage. Extremities/Musculoskeletal: normal inspection, no calf tenderness, no pedal edema Neurologic/Psych: alert, normal mood/affect, oriented x 3, no focal neurological deficit Lab data as noted below. ASSESSMENT & PLAN: S/P LUMBAR DECOMPRESSION/ FUSION POD # [address] 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) HISTORY OF LLE DVT (2015) On chronic Coumadin- instructed to bridge with Lovenox by PCP Resume Coumadin and Lovenox when acceptable by surgery- continue both until INR >2 for two days HYPERTENSION BP stable Continue Bystolic, nifedipine, olmesartan DM TYPE 2 insulin dependent well controlled Hb A1 C 5.9 BSG elevated today added insulin SSI /basal Lantus appreciate pharmacy consult for glycemic control CAD Stable Continue BB, ARB Not on statin due to hx myalgia with statin COPD Not in acute exacerbation Continue home inhaler HYPOTHYROIDISM Continue levothyroxine DVT PROPHYLAXIS scd and teds DISPOSITION per Ortho Vital Signs: Date Time Temp Pulse Resp B/P Pulse Ox O2 Delivery O2 Flow Rate FiO2 07/20/16 16:15 97 Room Air 07/20/16 15:09 37.0 84 16 128/65 97 Room Air 07/20/16 11:17 36.4 85 16 150/76 90 Room Air 07/20/16 09:49 83 96 07/20/16 07:15 Nasal Cannula 2.0 07/20/16 07:01 36.8 85 16 148/75 99 2.0 07/20/16 03:42 36.7 88 16 127/75 89 Room Air 07/19/16 23:23 36.7 86 16 144/82 92 Room Air 07/19/16 23:20 Room Air Lab Results: Results Past 24 Hours Test 07/19/16 20:38 07/20/16 05:35 07/20/16 07:59 07/20/16 11:35 Range/Units Bedside Glucose 233 205 298 70-90 mg/dl White Blood Count 8.28 4.8-10.8 K/uL Red Blood Count 4.49 4.2-5.4 M/uL Hemoglobin 13.6 12.0-16.0 g/dL Hematocrit 39.6 37-47 % Mean Corpuscular Volume 88.2 80-100 fL Mean Corpuscular Hemoglobin 30.3 25-34 pg Mean Corpuscular Hemoglobin Concent 34.3 32-36 g/dl Platelet Count 239 130-400 K/uL Mean Platelet Volume 9.3 7.4-10.4 fL Neutrophils (%) (Auto) 85.6 % Lymphocytes (%) (Auto) 8.9 % Monocytes (%) (Auto) 5.3 % Eosinophils (%) (Auto) 0.0 % Basophils (%) (Auto) 0.1 % Neutrophils # (Auto) 7.08 1.4-6.5 K/uL Lymphocytes # (Auto) 0.74 1.2-3.4 K/uL Monocytes # (Auto) 0.44 0.11-0.59 K/uL Eosinophils # (Auto) 0.00 0-0.5 K/uL Basophils # (Auto) 0.01 0-0.2 K/uL RDW Standard Deviation 40.5 36.4-46.3 fL RDW Coefficient of Variation 12.6 11.5-14.5 % Immature Granulocyte % (Auto) 0.1 % Immature Granulocyte # (Auto) 0.01 0.00-0.02 K/uL Sodium Level 137 136-145 mmol/L Potassium Level 3.8 3.5-5.1 mmol/L Chloride Level 98 98-107 mmol/L Carbon Dioxide Level 28 21-32 mmol/L Anion Gap 11.0 3-11 mmol/L Blood Urea Nitrogen 13 7-18 mg/dl Creatinine 1.10 0.60-1.20 mg/dl Est Creatinine Clear Calc Drug Dose 38.9 ml/min Estimated GFR () 57.7 Estimated GFR (Non- 49.8 BUN/Creatinine Ratio 11.7 10-20 Random Glucose 218 70-99 mg/dl Estimated Average Glucose 123 mg/dl Hemoglobin A1c 5.9 4.5-5.6 % Calcium Level 8.6 8.5-10.1 mg/dl Test 07/20/16 16:47 Range/Units Bedside Glucose 144 70-90 mg/dl
[2016-07-20] MEDS: HYDROmorphone INJ 0.5 MG/0.5 ML SYR IV PRN ×2 (18:46→23:49)
[2016-07-20] MEDS: INSULIN GLARGINE SOLOSTAR 100 UNITS/ML 3 ML PEN SC SCH (21:45)
[2016-07-20] MEDS: DOCUSATE SODIUM/SENNA 50/8.6MG TAB PO SCH (21:49)
[2016-07-20] MEDS: LEVOTHYROXINE 75 MCG TAB PO SCH (21:49)
[2016-07-21] MEDS: POLYETHYLENE (MIRALAX) 17 GM PACK PO SCH ×3 (05:21→18:44)
[2016-07-21] MEDS: OXYCODONE HCL IR 5 MG TAB (IMMEDIATE RELEASE) PO PRN ×4 (05:21→23:54)
[2016-07-21] MEDS: HYDROmorphone INJ 0.5 MG/0.5 ML SYR IV PRN ×3 (07:18→17:40)
[2016-07-21 07:29] VITALS: BP_SYST 106; BP_SYST 88; BP_DIAS 49; BP_DIAS 61; PULSE 90; TEMP 37.1; O2SAT 96
[2016-07-21] MEDS: EZETIMIBE 10MG TAB PO SCH (08:34)
[2016-07-21] MEDS: HYDROXYCHLOROQUINE SULFATE 200 MG TAB PO SCH (08:34)
[2016-07-21] MEDS: NEBIVOLOL HCL 5 MG TAB PO SCH (08:34)
[2016-07-21] MEDS: FLUTICASONE/SALMETEROL 250/50 (ADVAIR) 14 PUFF/1 INHALER INH SCH ×2 (08:34→21:10)
[2016-07-21] MEDS: MAGNESIUM OXIDE 400 MG TAB PO SCH (08:34)
[2016-07-21] MEDS: NIFEdipine 30 MG CR TAB PO SCH (08:35)
[2016-07-21] MEDS: OXYBUTYNIN CHLORIDE 5 MG TABCR PO SCH (08:35)
[2016-07-21] MEDS: OLMESARTAN MEDOXOMIL 40 MG TAB PO SCH (08:35)
[2016-07-21] MEDS: PANTOprazole SOD 40 MG TAB PO SCH (08:35)
[2016-07-21] MEDS: INSULIN GLARGINE SOLOSTAR 100 UNITS/ML 3 ML PEN SC SCH ×2 (09:17→21:21)
[2016-07-21] MEDS: INSULIN ASPART 100 UNITS/ML 3 ML PEN SC SCH ×4 (09:18→21:00)
--- NOTE | 2016-07-21 10:54 | Pharmacy Progress Note ---
Glycemic Control: Progress Nt Date of Service Jul 21, 2016. Scope Glycemic Pharmacist consulted by Dr Rinaldi on 07/20/16 for glycemic control and to write orders per [facility] inpatient glycemic control protocol. Objective Accuchecks BSG (last 24hrs): Test 07/20/16 11:35 07/20/16 16:47 Bedside Glucose 298 mg/dl (70-90) 144 mg/dl (70-90) HbA1c: Test 07/20/16 05:35 Hemoglobin A1c 5.9 % (4.5-5.6) H Recent Pertinent Medications Outpatient Anti-diabetic Regimen: * Levemir 26 units bid, Novolog AC sliding scale * A1c = 5.9 % 07/20/16 The patient is currently receiving: * Basal insulin: Lantus 10 units every 12 hours * Correctional Insulin: Novolog Correction per scale ACHS Goal Range: Low 120 mg/dL - High 150 mg/dL Correction Factor: 30 mg/dL/unit * Prandial insulin: Per carb ratio of 1 unit per 10 grams CHO consumed Risk Factors for Insulin Resistance: * IVF: now dc'd * Recent Surgery: POD#2 spinal surgery * Diet: type 2 diabetic, fairly good appetite Assessment & Plan ASSESSMENT: * ADA & AACE recommend a goal blood sugar range 140-180 mg/dl for the majority of critically ill & non-critically ill patients. However, more stringent targets may be selected in individual cases. * Patient used 50 units of insulin on 07/20. BSG's ranged 144-238 over past 24 hr. FBS high-will increase basal insulin a bit. Note that A1c of 5.9% in 75 yo may indicate too tight glycemic control over past few months with some hypoglycemia. Will reassess in am. PLAN FOR INPATIENT GLYCEMIC CONTROL: * Increasing Lantus to 14 units SQ BID, give 1/2 dose if BSG is less than 120 * Continuing correction factor 30 mg/dl/unit * Continuing carb ratio 1 unit per 10 grams CHO consumed * Continuing goal range Low 120 mg/dL - High 150 mg/dL Please note that the plan above was derived based on current level of insulin resistance and hospital stress. These recommendations are appropriate for inpatient admission only. Plan of care upon discharge will need to be reassessed to avoid potential outpatient hypo/hyperglycemia. Thank you.
[2016-07-21] MEDS ORDERED: INSULIN GLARGINE SOLOSTAR 100 UNITS/ML 3 ML PEN SC SCH (11:00)
[2016-07-21] MEDS ORDERED: NURSING VERBAL MED ORDER ONE ×2 (14:45→23:15)
[2016-07-21 16:37] VITALS: BP 146/71; PULSE 92; TEMP 37.2; O2SAT 94
[2016-07-21 17:33] VITALS: BP 182/67; PULSE 98; TEMP 36.8; O2SAT 92
[2016-07-21 17:42] VITALS: BP 147/71; PULSE 92
[2016-07-21] MEDS: DOCUSATE SODIUM/SENNA 50/8.6MG TAB PO SCH (21:10)
[2016-07-21] MEDS: LEVOTHYROXINE 75 MCG TAB PO SCH (21:10)
--- NOTE | 2016-07-21 22:23 | Progress Note ---
Internal Med Progress Note Date of Service: Jul 21, 2016. Provider Documentation: SUBJECTIVE: feels very tired and weak back pain has improved no fever or chills OBJECTIVE: Vital Signs-as noted below Exam: General Appearance: no apparent distress Head: normocephalic, atraumatic Eyes: normal inspection, sclerae normal ENT: hearing grossly normal Neck: supple, trachea midline Respiratory/Chest: lungs clear, normal breath sounds, no respiratory distress Cardiovascular: regular rate, rhythm, no murmur Abdomen/GI: normal bowel sounds, non tender, soft Back: + pertinent finding s/p lumbar decompression/ fusion. drain in place with sanguinous drainage. Extremities/Musculoskeletal: normal inspection, no calf tenderness, no pedal edema Neurologic/Psych: alert, normal mood/affect, oriented x 3, no focal neurological deficit Lab data as noted below. ASSESSMENT & PLAN: S/P LUMBAR DECOMPRESSION/ FUSION POD # [address] 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) HISTORY OF LLE DVT (2015) On chronic Coumadin- instructed to bridge with Lovenox by PCP Resume Coumadin and Lovenox when acceptable by surgery- continue both until INR >2 for two days HYPERTENSION BP stable Continue Bystolic, nifedipine, olmesartan DM TYPE 2 insulin dependent out pt dose : Levemir 26 units bid, Novolog AC sliding scale * A1c = 5.9 % 07/20/16 BSG improved after adjustment of insulin dose added insulin SSI /basal Lantus appreciate pharmacy consult for glycemic control CAD Stable Continue BB, ARB hx of stain intolerance - myalgia with statin COPD Not in acute exacerbation Continue home inhaler HYPOTHYROIDISM Continue levothyroxine DVT PROPHYLAXIS scd and teds DISPOSITION per Ortho Vital Signs: Date Time Temp Pulse Resp B/P Pulse Ox O2 Delivery O2 Flow Rate FiO2 07/21/16 17:42 92 147/71 07/21/16 17:33 36.8 98 24 182/67 92 Room Air 07/21/16 16:37 37.2 92 17 146/71 94 Room Air 07/21/16 12:00 Room Air 07/21/16 07:29 37.1 90 16 106/61 96 Room Air 07/21/16 07:15 Room Air 07/20/16 23:45 Room Air 07/20/16 23:41 37.4 88 16 125/73 93 Room Air Lab Results: Results Past 24 Hours Test 07/21/16 07:44 07/21/16 11:53 07/21/16 20:49 Range/Units Bedside Glucose 226 118 126 70-90 mg/dl
[2016-07-21 23:15] VITALS: BP 154/74; PULSE 101; TEMP 37.1; O2SAT 92
[2016-07-22 07:27] VITALS: BP 101/63; PULSE 92; TEMP 37.2; O2SAT 91
[2016-07-22] MEDS: OXYCODONE HCL IR 5 MG TAB (IMMEDIATE RELEASE) PO PRN ×3 (07:28→18:30)
[2016-07-22] MEDS: INSULIN ASPART 100 UNITS/ML 3 ML PEN SC SCH ×4 (08:00→21:16)
[2016-07-22] MEDS ORDERED: INSULIN GLARGINE SOLOSTAR 100 UNITS/ML 3 ML PEN SC SCH (09:00)
[2016-07-22] MEDS: OXYBUTYNIN CHLORIDE 5 MG TABCR PO SCH (09:20)
[2016-07-22] MEDS: KETOROLAC TROMETHAMINE 15 MG/ML VIAL IV. PRN ×2 (09:20→15:52)
[2016-07-22] MEDS: OLMESARTAN MEDOXOMIL 40 MG TAB PO SCH (09:20)
[2016-07-22] MEDS: NIFEdipine 30 MG CR TAB PO SCH (09:20)
[2016-07-22] MEDS: EZETIMIBE 10MG TAB PO SCH (09:21)
[2016-07-22] MEDS: FLUTICASONE/SALMETEROL 250/50 (ADVAIR) 14 PUFF/1 INHALER INH SCH ×2 (09:21→21:08)
[2016-07-22] MEDS: NEBIVOLOL HCL 5 MG TAB PO SCH (09:22)
[2016-07-22] MEDS: PANTOprazole SOD 40 MG TAB PO SCH (09:22)
[2016-07-22] MEDS: MAGNESIUM OXIDE 400 MG TAB PO SCH (09:22)
[2016-07-22] MEDS: HYDROXYCHLOROQUINE SULFATE 200 MG TAB PO SCH (09:22)
[2016-07-22] MEDS: ENOXAPARIN 40 MG/0.4 ML SYR SQ SCH ×2 (09:36→21:09)
[2016-07-22 11:04] LABS: INR 1.1 (0.9-1.1); PROTHROMBIN TIME (PATIENT) 11.7 SECONDS (9.0-12.0)
--- NOTE | 2016-07-22 12:10 | Pharmacy Progress Note ---
Glycemic Control: Progress Nt Date of Service Jul 22, 2016. Scope Glycemic Pharmacist consulted by Dr Rinaldi on 07/20/16 for glycemic control and to write orders per [facility] inpatient glycemic control protocol. Objective Accuchecks BSG (last 24hrs): Test 07/21/16 20:49 07/22/16 08:30 07/22/16 11:47 Bedside Glucose 126 mg/dl (70-90) 125 mg/dl (70-90) 151 mg/dl (70-90) HbA1c: Test 07/20/16 05:35 Hemoglobin A1c 5.9 %(4.5-5.6) H Recent Pertinent Medications Outpatient Anti-diabetic Regimen: * Levemir 26 units SQ BID * NovoLog AC sliding scale * A1c = 5.9 % 07/20/16 The patient is currently receiving: * Basal insulin: Lantus 14 units every 12 hours * Correctional Insulin: NovoLog Correction per scale AC/HS Goal Range: Low 120 mg/dL - High 150 mg/dL Correction Factor: 30 mg/dL/unit * Prandial insulin: Per carb ratio of 1 unit per 10 grams CHO consumed Risk Factors for Insulin Resistance: * Recent Surgery: POD#3 spinal surgery * Diet: T2DM Assessment & Plan ASSESSMENT: * ADA & AACE recommend a goal blood sugar range 140-180 mg/dl for the majority of critically ill & non-critically ill patients. However, more stringent targets may be selected in individual cases. 07/21/16 * Patient used 50 units of insulin on 07/20. BSG's ranged 144-238 over past 24 hr. * FBS high-will increase basal insulin a bit. * Note that A1c of 5.9% in 75 yo may indicate too tight glycemic control over past few months with some hypoglycemia. Will reassess in am. 07/22/16 * Only 36 units of insulin required over the past 24 hours (in contrast to 50 units the day before) and many Accu-checks below goal range * will decrease basal insulin back to previous dosing * may indicate hypoglycemia as an outpatient with larger doses of Levemir * Distribution of insulin not near 50/50 ratio of basal and prandial - try to redistribute PLAN FOR INPATIENT GLYCEMIC CONTROL: * Change Lantus to Levemir (what the patient uses at home) * Levemir to 10 units SQ BID * hold if BSG less than 110mg/dL * Continue NovoLog AC and HS * Correction factor 30mg/dL/unit * Carb ratio 1 unit per 10g of CHO consumed * Goal range increased to 140-180mg/dL * A1c is current * add to discharge instructions RECOMMENDATIONS FOR DISCHARGE: * awaiting disposition * Please note that the plan above was derived based on current level of insulin resistance and hospital stress. These recommendations are appropriate for inpatient admission only. Plan of care upon discharge will need to be reassessed to avoid potential outpatient hypo/hyperglycemia. Thank you.
[2016-07-22] MEDS: ACETAMINOPHEN 500 MG TAB PO PRN ×2 (13:08→21:07)
[2016-07-22 15:44] VITALS: BP 102/63; PULSE 70; TEMP 36.6; O2SAT 97
[2016-07-22] MEDS: WARFARIN SOD 5 MG TAB PO SCH (15:49)
--- NOTE | 2016-07-22 18:31 | Progress Note ---
Internal Med Progress Note Date of Service: Jul 22, 2016. Provider Documentation: SUBJECTIVE: continues to have back pain at the surgical site drain removed had allergic reaction to tape-itching ordered Benadryl , asked to change dressing to paper tapes no rash noted symptom has resolved with Benadryl frustrated with prolong hospital stay OBJECTIVE: Vital Signs-as noted below Exam: General Appearance: no apparent distress Head: normocephalic, atraumatic Eyes: normal inspection, sclerae normal ENT: hearing grossly normal Neck: supple, trachea midline Respiratory/Chest: lungs clear, normal breath sounds, no respiratory distress Cardiovascular: regular rate, rhythm, no murmur Abdomen/GI: normal bowel sounds, non tender, soft Back: + pertinent finding s/p lumbar decompression/ fusion. drain removed , surgical site dressing present , no drainage, no erythema or rash noted Extremities/Musculoskeletal: normal inspection, no calf tenderness, no pedal edema Neurologic/Psych: alert, normal mood/affect, oriented x 3, no focal neurological deficit Lab data as noted below. ASSESSMENT & PLAN: S/P LUMBAR DECOMPRESSION/ FUSION POD # [address] Desai cont management as per Ortho HISTORY OF PRESUMED EMBOLIC STROKE (2013) HISTORY OF LLE DVT (2016) Resumed Coumadin and Lovenox bridge therapy by surgery monitor INR continue both until INR >2 for two days HYPERTENSION BP stable Continue Bystolic, nifedipine, olmesartan DM TYPE 2 insulin dependent out pt dose : Levemir 26 units bid, Novolog AC sliding scale * A1c = 5.9 % 07/20/16 BSG improved after adjustment of insulin dose added insulin SSI /basal Lantus appreciate pharmacy consult for glycemic control CAD Stable Continue BB, ARB hx of stain intolerance - myalgia with statin COPD Not in acute exacerbation Continue home inhaler HYPOTHYROIDISM Continue levothyroxine DVT PROPHYLAXIS scd and teds DISPOSITION per Ortho Vital Signs: Date Time Temp Pulse Resp B/P Pulse Ox O2 Delivery O2 Flow Rate FiO2 07/22/16 15:44 36.6 70 16 102/63 97 07/22/16 07:27 37.2 92 18 101/63 91 Room Air 07/22/16 07:22 Room Air 07/22/16 00:00 Room Air 07/21/16 23:15 37.1 101 17 154/74 92 Room Air Lab Results: Results Past 24 Hours Test 07/21/16 20:49 07/22/16 08:30 07/22/16 10:27 07/22/16 11:47 Range/Units Bedside Glucose 126 125 151 70-90 mg/dl Prothrombin Time 11.7 9.0-12.0 SECONDS Prothromb Time International Ratio 1.1 0.9-1.1 Test 07/22/16 17:43 Range/Units Bedside Glucose 99 70-90 mg/dl
[2016-07-22] MEDS ORDERED: INSULIN DETEMIR FLEXPEN/FLEX TOUCH 100 UNITS/ML 3ML SC SCH (21:00)
[2016-07-22] MEDS: DOCUSATE SODIUM/SENNA 50/8.6MG TAB PO SCH (21:00)
[2016-07-22] MEDS: LEVOTHYROXINE 75 MCG TAB PO SCH (21:09)
[2016-07-22 23:30] VITALS: BP 94/58; PULSE 71; TEMP 36.9; O2SAT 95
[2016-07-23 06:01] LABS: INR 1.1 (0.9-1.1); PROTHROMBIN TIME (PATIENT) 11.5 SECONDS (9.0-12.0)
[2016-07-23 07:13] VITALS: BP 100/53; PULSE 83; TEMP 37.3; O2SAT 93
[2016-07-23] MEDS: INSULIN ASPART 100 UNITS/ML 3 ML PEN SC SCH ×4 (08:00→21:00)
[2016-07-23] MEDS: OXYCODONE HCL IR 5 MG TAB (IMMEDIATE RELEASE) PO PRN ×3 (08:52→18:11)
[2016-07-23] MEDS: KETOROLAC TROMETHAMINE 15 MG/ML VIAL IV. PRN (08:52)
[2016-07-23] MEDS: FLUTICASONE/SALMETEROL 250/50 (ADVAIR) 14 PUFF/1 INHALER INH SCH ×2 (08:53→21:22)
[2016-07-23] MEDS: NEBIVOLOL HCL 5 MG TAB PO SCH (08:54)
[2016-07-23] MEDS: OXYBUTYNIN CHLORIDE 5 MG TABCR PO SCH (08:54)
[2016-07-23] MEDS: NIFEdipine 30 MG CR TAB PO SCH (08:54)
[2016-07-23] MEDS: OLMESARTAN MEDOXOMIL 40 MG TAB PO SCH (08:54)
[2016-07-23] MEDS: HYDROXYCHLOROQUINE SULFATE 200 MG TAB PO SCH (08:54)
[2016-07-23] MEDS: ENOXAPARIN 40 MG/0.4 ML SYR SQ SCH ×2 (08:55→21:24)
[2016-07-23] MEDS: EZETIMIBE 10MG TAB PO SCH (08:55)
[2016-07-23] MEDS: PANTOprazole SOD 40 MG TAB PO SCH (08:55)
[2016-07-23] MEDS: MAGNESIUM OXIDE 400 MG TAB PO SCH (08:56)
[2016-07-23] MEDS: INSULIN DETEMIR FLEXPEN/FLEX TOUCH 100 UNITS/ML 3ML SC SCH ×2 (08:59→21:26)
[2016-07-23 09:00] VITALS: BP 104/63; PULSE 83
--- NOTE | 2016-07-23 09:22 | PROGRESS NOTE ---
DATE: 07/23/2016 SUBJECTIVE: Mrs. Sharp is in bed struggling with some pain today. Again, she was started on Coumadin with a Lovenox bridge yesterday. Vital signs are stable. T max 37.3. Drain has been removed. On exam incision is clean, dry and intact. There is no drainage or erythema. She has been struggling with some pruritus secondary to adhesives. She has good strength to testing otherwise. ASSESSMENT: Status post lumbar decompression and fusion. PLAN: At this time medicine would like to bridge her with Lovenox until she becomes therapeutic. Today her INR is 1.1. Hopefully, tomorrow it would be close to therapeutic, we will discharge home.
[2016-07-23] MEDS: ACETAMINOPHEN 500 MG TAB PO PRN ×2 (11:43→21:20)
--- NOTE | 2016-07-23 13:42 | Pharmacy Progress Note ---
Glycemic: Assessment & Plan Date of Service Jul 23, 2016. Assessment & Plan Recent Pertinent Medications Outpatient Anti-diabetic Regimen: * Levemir 26 units SQ BID * NovoLog AC sliding scale * A1c = 5.9 % 07/20/16 The patient is currently receiving: * Basal insulin: Levemir 10 units SQ every 12 hours * Correctional Insulin: NovoLog Correction per scale AC/HS Goal Range: Low 140 mg/dL - High 180 mg/dL Correction Factor: 30 mg/dL/unit * Prandial insulin: Per carb ratio of 1 unit per 10 grams CHO consumed Risk Factors for Insulin Resistance: * Recent Surgery: POD#4 spinal surgery * Diet: T2DM Assessment & Plan ASSESSMENT: * ADA & AACE recommend a goal blood sugar range 140-180 mg/dl for the majority of critically ill & non-critically ill patients. However, more stringent targets may be selected in individual cases. 07/21/16 * Patient used 50 units of insulin on 07/20. BSG's ranged 144-238 over past 24 hr. * FBS high-will increase basal insulin a bit. * Note that A1c of 5.9% in 75 yo may indicate too tight glycemic control over past few months with some hypoglycemia. Will reassess in am. 07/22/16 * Only 36 units of insulin required over the past 24 hours (in contrast to 50 units the day before) and many Accu-checks below goal range * will decrease basal insulin back to previous dosing * may indicate hypoglycemia as an outpatient with larger doses of Levemir * Distribution of insulin not near 50/50 ratio of basal and prandial - try to redistribute 07/23/16 * Daily requirement of insulin decreased for the third day in a row with Ms Sharp getting 24 units of insulin on 07/22 * 20 units of this was basal insulin (not near 50/50 ratio) * Fasting BSG below goal range and had large drop from PM BSG last night * Decrease basal insulin again and continue to aim for a more even ratio between basal and prandial insulin * No change to NovoLog parameters at this time PLAN FOR INPATIENT GLYCEMIC CONTROL: * Levemir to 7 units SQ BID * Continue NovoLog AC and HS * Correction factor 30mg/dL/unit * Carb ratio 1 unit per 10g of CHO consumed * Goal range increased to 140-180mg/dL * A1c is current * add to discharge instructions RECOMMENDATIONS FOR DISCHARGE: * Ms Sharp is requiring substantially less insulin this admission compared to home doses * question hypoglycemia - if this is of concern, decrease home doses and enforce the importance of compliance * if no hypoglycemia, may contribute change to dietary habits at home (?) or noncompliance - if these are suspect, may continue home regimen * Follow up with outpatient provider * Please note that the plan above was derived based on current level of insulin resistance and hospital stress. These recommendations are appropriate for inpatient admission only. Plan of care upon discharge will need to be reassessed to avoid potential outpatient hypo/hyperglycemia. Thank you.
[2016-07-23 15:00] VITALS: BP 112/67; PULSE 81; O2SAT 94
[2016-07-23] MEDS: WARFARIN SOD 5 MG TAB PO SCH (15:29)
--- NOTE | 2016-07-23 17:55 | Progress Note ---
Internal Med Progress Note Date of Service: Jul 23, 2016. Provider Documentation: SUBJECTIVE: continues to have significant pain in back with minimum movement no fever or chills developed urinary retention bladder scan shows > 300 ml of post void urine ordered for Navarrete catheter check UA and culture if indicated OBJECTIVE: Vital Signs-as noted below Exam: General Appearance: no apparent distress Head: normocephalic, atraumatic Eyes: normal inspection, sclerae normal ENT: hearing grossly normal Neck: supple, trachea midline Respiratory/Chest: lungs clear, normal breath sounds, no respiratory distress Cardiovascular: regular rate, rhythm, no murmur Abdomen/GI: normal bowel sounds, non tender, soft Back: + pertinent finding s/p lumbar decompression/ fusion. drain removed , surgical site dressing present , no drainage, no erythema or rash noted Extremities/Musculoskeletal: normal inspection, no calf tenderness, no pedal edema Neurologic/Psych: alert, normal mood/affect, oriented x 3, no focal neurological deficit Lab data as noted below. ASSESSMENT & PLAN: S/P LUMBAR DECOMPRESSION/ FUSION POD # [address] 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) HISTORY OF LLE DVT (2015) on Coumadin and Lovenox bridge therapy by surgery INR 1.1 can be discharged home with Lovenox bridge will need Coag clinic follow up will need to continue bridge therapy until INR therapeutic for two days HYPERTENSION BP stable Continue Bystolic, nifedipine, olmesartan DM TYPE 2 insulin dependent out pt dose : Levemir 26 units bid, Novolog AC sliding scale * A1c = 5.9 % 07/20/16 BSG improved after adjustment of insulin dose added insulin SSI /basal Lantus appreciate pharmacy consult for glycemic control CAD Stable Continue BB, ARB hx of stain intolerance - myalgia with statin COPD Not in acute exacerbation Continue home inhaler HYPOTHYROIDISM Continue levothyroxine DVT PROPHYLAXIS scd and teds DISPOSITION per Ortho Vital Signs: Date Time Temp Pulse Resp B/P Pulse Ox O2 Delivery O2 Flow Rate FiO2 07/23/16 15:00 81 18 112/67 94 Room Air 07/23/16 09:00 83 104/63 07/23/16 07:45 Room Air 07/23/16 07:13 37.3 83 21 100/53 93 Room Air 07/22/16 23:45 Room Air 07/22/16 23:30 36.9 71 16 94/58 95 Room Air Lab Results: Results Past 24 Hours Test 07/22/16 20:56 07/23/16 05:23 07/23/16 07:56 07/23/16 12:08 Range/Units Bedside Glucose 205 103 150 70-90 mg/dl Prothrombin Time 11.5 9.0-12.0 SECONDS Prothromb Time International Ratio 1.1 0.9-1.1 Test 07/23/16 16:52 Range/Units Bedside Glucose 156 70-90 mg/dl
[2016-07-23 18:39] LABS: URINE APPEARANCE CLEAR (CLEAR); URINE BILIRUBIN NEG (NEG); URINE COLOR YELLOW; URINE NITRITE NEG (NEG); URINE SPECIFIC GRAVITY 1.002 (1.000-1.030); UROBILINOGEN NEG (NEG); ZZURINE CULT IF INDIC CATH NO
[2016-07-23 18:40] LABS: MANUAL MICROSCOPIC REQUIRED? NO; REVIEW REQ? NO
[2016-07-23] MEDS: DOCUSATE SODIUM/SENNA 50/8.6MG TAB PO SCH (21:23)
[2016-07-23] MEDS: LEVOTHYROXINE 75 MCG TAB PO SCH (21:23)
[2016-07-23 22:56] VITALS: BP 110/61; PULSE 90; TEMP 37.4; O2SAT 94
[2016-07-24 05:29] LABS: INR 1.3 (0.9-1.1)
--- NOTE | 2016-07-24 06:17 | Orthopedic Progress Note ---
Orthopedic Progress Note Date of Service Jul 24, 2016. Subjective Additional Notes: Patient lying in bed. Reports pain is well controlled. She feels she is progressing. Stable medically. No new issues to report. Objective calves soft nontender, N/V intact, capillary refill less than 2 sec., dressing C /D/I, A&O x3, toes mobile Date Time Temp Pulse Resp B/P Pulse Ox O2 Delivery O2 Flow Rate FiO2 07/23/16 23:52 Room Air 07/23/16 22:56 37.4 90 16 110/61 94 Room Air 07/23/16 15:30 Room Air 07/23/16 15:00 81 18 112/67 94 Room Air 07/23/16 09:00 83 104/63 07/23/16 07:45 Room Air 07/23/16 07:13 37.3 83 21 100/53 93 Room Air Laboratory Results 24 Hours: Test 07/24/16 05:15 Prothromb Time International Ratio 1.3 Prothrombin Time 14.0 SECONDS Assessment & Plan Assessment: Doing well, discharge home today Discharge Planning Discharge Planning: home Pain Management: Oxy IR DVT Prophylaxis: SCDs
[2016-07-24] MEDS ORDERED: RXC5 PO (06:18)
--- NOTE | 2016-07-24 06:21 | Discharge Instructions ---
Discharge Instructions Admission Reason for Admission: Spinal Stenosis (Iggy Bass PA-C) Discharge Discharge Diagnosis / Problem: lumbar stenosis (Iggy Bass PA-C) Discharge Diagnosis / Problem: LUMBER SPINAL STENOIS S/P DECOMPRESSION SURGERY (Yolanda Rinaldi M.D.) Discharge Goals Goal(s): Decrease discomfort, Improve function, Increase independence (Iggy Bass PA-C) Activity Recommendations Activity Limitations: as noted below Lifting Limitations: no more than 5 pounds Exercise/Sports Limitations: until after follow-up appointment May Resume Sexual Activity: after follow-up appointment Shower/Bathe: may shower/bathe in 3 days ACTIVITY RECOMMENDATIONS: SELF CARE INSTRUCTIONS AFTER THORACIC/LUMBAR FUSIONS 1. You may walk to your tolerance. It is good exercise for your legs and back. Expect some back and intermittent leg aches and pains. 2. You may perform "counter-top" level activities (make a sandwich, jeffery with a project, etc.). 3. No bending or lifting of more than 10 pounds or back twisting of any nature (roll like a log when turning in bed). 4. You may ride in a car for 20-30 minutes at a time. No driving until after your first visit with your doctor. 5. Frequent changes of position and restricting sitting to 30 minutes at a time will help limit the amount of back spasms and stiffness you may experience. 6. You may discontinue the use of ambulatory aids (cane, crutches, etc.) once your strength and confidence allow. 7. You may footwear machinery instructor the shower and let water strike your incision when you arrive home at least once daily. Do not take a tub bath, sit in a hot tub or go into a swimming pool until after your first recheck in the office. SPECIAL CARE INSTRUCTIONS: VERY IMPORTANT TO READ AND REVIEW A. Your surgical incision has been closed with a cosmetic suture under the skin that will dissolve in about 6 weeks. In 14 days, you can use a pair of clean scissors and cut the suture that is left outside of the skin at the ends of your incision. 1. The small skin tapes can be removed 7 days after surgery if they have not fallen off by that point. 2. You may keep the wound open to air as much as possible to promote healing after post-op day number 5 unless told otherwise by your doctor. 3. If you think the wound looks like it is becoming infected (redness or worsening drainage) and/or you are experiencing fever, chill or worsening back pain and muscle spasms, contact the office so that we may evaluate you as soon as possible. B. Complications are uncommon, but please contact us if you have any signs or symptoms of: 1. wound infection (fever higher than 102.5 degrees F, redness, separation of wound, drainage, or increasing pain from the incision) 2. blood clots in legs (pain, swelling, redness and warmth in legs) 3. urinary tract infection (fever higher than 102.5 degrees F, burning upon urination or increased frequency of urination) 4. nerve problems (inability to walk on your toes or heels, numbness, loss of bowel or bladder control) 5. any other symptoms that concern you C. Please call the office at if you have any concerns or questions about your operation or recovery. D. No smoking! Smoking drastically decreases the chance of a solid fusion. E. Do not take any anti-inflammatory medications (Indocin, Advil, Motrin, Aspirin, Naprosyn, etc.) as these may inhibit the chance of a solid fusion. Tylenol is okay to take for pain. MANAGING PAIN AFTER SPINAL SURGERY 1. Narcotic medication is intended for short-term use and will be provided for surgical pain. Surgical pain usually lasts for a period of 4-6 weeks. Narcotic medication includes Percocet, Vicodin, Darvocet, Tylenol #3 or Lortab. 2. Longer-term pain is more appropriately treated with non-narcotic medication such as Tylenol ES. 3. Muscle spasm is not appropriately treated with narcotics. Muscle relaxers such as Soma, Flexeril or Skelaxin can be used along with Tylenol ES. 4. Remember that we all live with some "aches and pains". This is not unusual or uncommon after an injury or as we get older. a. Back pain is expected and may include muscle spasms for 4 to 6 weeks after surgery. The pain should gradually improve. If the pain worsens for no apparent reason, please contact the office. b. Intermittent leg pain may also be experienced and should not be concerned about unless it worsens for no apparent reason. If so, please contact the office. 5. We will provide appropriate medication within the normal guidelines of their prescribed use. We will also be very cautious and aware of potential abuse and extended duration of patients' medication needs. a. Pain medications are for your comfort and to assist with sleep and rest so that the tissue can heal. They are not provided in order to return to normal activity and should not be used through the day. To do so or worsening pain at night can result from ongoing tissue damage and development of tolerance to the prescribed medicine. 6. Please allow 2-3 days to process refills. Prescriptions will not be mailed but must be picked up at the office. FOLLOW UP VISIT: Keep your scheduled follow-up appointment. Any questions, please call the office at . . (Iggy Bass, JASON) Instructions / Follow-Up Instructions / Follow-Up Follow medicine's guidelines for anti-coagulation and contact PCP regarding dosages of Coumadin following discharge. ACTIVITY RECOMMENDATIONS: SELF CARE INSTRUCTIONS AFTER THORACIC/LUMBAR FUSIONS 1. You may walk to your tolerance. It is good exercise for your legs and back. Expect some back and intermittent leg aches and pains. 2. You may perform "counter-top" level activities (make a sandwich, jeffery with a project, etc.). 3. No bending or lifting of more than 10 pounds or back twisting of any nature (roll like a log when turning in bed). 4. You may ride in a car for 20-30 minutes at a time. No driving until after your first visit with your doctor. 5. Frequent changes of position and restricting sitting to 30 minutes at a time will help limit the amount of back spasms and stiffness you may experience. 6. You may discontinue the use of ambulatory aids (cane, crutches, etc.) once your strength and confidence allow. 7. You may footwear machinery instructor the shower and let water strike your incision when you arrive home at least once daily. Do not take a tub bath, sit in a hot tub or go into a swimming pool until after your first recheck in the office. SPECIAL CARE INSTRUCTIONS: VERY IMPORTANT TO READ AND REVIEW A. Your surgical incision has been closed with a cosmetic suture under the skin that will dissolve in about 6 weeks. In 14 days, you can use a pair of clean scissors and cut the suture that is left outside of the skin at the ends of your incision. 1. The small skin tapes can be removed 7 days after surgery if they have not fallen off by that point. 2. You may keep the wound open to air as much as possible to promote healing after post-op day number 5 unless told otherwise by your doctor. 3. If you think the wound looks like it is becoming infected (redness or worsening drainage) and/or you are experiencing fever, chill or worsening back pain and muscle spasms, contact the office so that we may evaluate you as soon as possible. B. Complications are uncommon, but please contact us if you have any signs or symptoms of: 1. wound infection (fever higher than 102.5 degrees F, redness, separation of wound, drainage, or increasing pain from the incision) 2. blood clots in legs (pain, swelling, redness and warmth in legs) 3. urinary tract infection (fever higher than 102.5 degrees F, burning upon urination or increased frequency of urination) 4. nerve problems (inability to walk on your toes or heels, numbness, loss of bowel or bladder control) 5. any other symptoms that concern you C. Please call the office at if you have any concerns or questions about your operation or recovery. D. No smoking! Smoking drastically decreases the chance of a solid fusion. E. Do not take any anti-inflammatory medications (Indocin, Advil, Motrin, Aspirin, Naprosyn, etc.) as these may inhibit the chance of a solid fusion. Tylenol is okay to take for pain. MANAGING PAIN AFTER SPINAL SURGERY 1. Narcotic medication is intended for short-term use and will be provided for surgical pain. Surgical pain usually lasts for a period of 4-6 weeks. Narcotic medication includes Percocet, Vicodin, Darvocet, Tylenol #3 or Lortab. 2. Longer-term pain is more appropriately treated with non-narcotic medication such as Tylenol ES. 3. Muscle spasm is not appropriately treated with narcotics. Muscle relaxers such as Soma, Flexeril or Skelaxin can be used along with Tylenol ES. 4. Remember that we all live with some "aches and pains". This is not unusual or uncommon after an injury or as we get older. a. Back pain is expected and may include muscle spasms for 4 to 6 weeks after surgery. The pain should gradually improve. If the pain worsens for no apparent reason, please contact the office. b. Intermittent leg pain may also be experienced and should not be concerned about unless it worsens for no apparent reason. If so, please contact the office. 5. We will provide appropriate medication within the normal guidelines of their prescribed use. We will also be very cautious and aware of potential abuse and extended duration of patients' medication needs. a. Pain medications are for your comfort and to assist with sleep and rest so that the tissue can heal. They are not provided in order to return to normal activity and should not be used through the day. To do so or worsening pain at night can result from ongoing tissue damage and development of tolerance to the prescribed medicine. 6. Please allow 2-3 days to process refills. Prescriptions will not be mailed but must be picked up at the office. FOLLOW UP VISIT: Keep your scheduled follow-up appointment. Any questions, please call the office at . (Iggy Bass PA-C) Instructions / Follow-Up PT/INR TO BE CHECKED IN 2 DAYS ( ON 07/26/16 ) DISCHARGED ON LOVENOX 40MG SUB Q BID FOR 3 DAYS FOR BRIDGE THERAPY CAN BE STOPPED INR ~2 CONTINUE COUMADIN PLEASE CALL FAMILY PHYSICIAN DR ESTEVES OFFICE FOR ADJUSTING THE DOSE OF COUMADIN AND INR MONITORING (Yolanda Rinaldi M.D.) Current Hospital Diet Patient's current hospital diet: Diabetes Type 2 Diet (Iggy Bass PA-C) Discharge Diet Recommended Diet: Regular Diet (Iggy Bass PA-C) Procedures Procedures Performed: L3-L4 decompression and instrumented fusion; with use of Infuse, arteriocyte, and Allograft (Iggy Bass PA-C) Pending Studies Studies pending at discharge: no (Iggy Bass PA-C) Studies pending at discharge: yes List of pending studies: PT/INR CHECK ON 07/26/16 (Yolanda Rinaldi M.D.) Laboratory Results Hemoglobin A1c Test 07/20/16 05:35 Range/Units Estimated Average Glucose 123 mg/dl Hemoglobin A1c 5.9 H 4.5-5.6 % (Iggy Bass PA-C) Medical Emergencies . Who to Call and When: Medical Emergencies: If at any time you feel your situation is an emergency, please call 911 immediately. . (Iggy Bass PA-C) Non-Emergent Contact Non-Emergency issues call your: Surgeon Call Non-Emergent contact if: temperature is above 101, your pain is not controlled, your pain is worsening, your pain is unusual for you, your pain is concerning you, wound has increased drainage, wound has increased redness, wound has increased pain, you have any medication questions (Iggy Bass PA-C) . "Provider Documentation" section prepared by Iggy Bass. (Iggy Bass PA-C) VTE Core Measure Inpt VTE Proph given/why not?: T.E.D. Stockings (Iggy Bass PA-C) Inpt VTE Proph given/why not?: Enoxaparin (Lovenox)SQ, Warfarin (Coumadin) (Yolanda Rinaldi M.D.)
[2016-07-24 06:53] VITALS: BP 101/65; PULSE 88; TEMP 37; O2SAT 94
[2016-07-24] MEDS: OXYCODONE HCL IR 5 MG TAB (IMMEDIATE RELEASE) PO PRN ×2 (07:02→14:29)
[2016-07-24] MEDS: ACETAMINOPHEN 500 MG TAB PO PRN (08:49)
[2016-07-24] MEDS: OLMESARTAN MEDOXOMIL 40 MG TAB PO SCH (08:50)
[2016-07-24] MEDS: FLUTICASONE/SALMETEROL 250/50 (ADVAIR) 14 PUFF/1 INHALER INH SCH (08:50)
[2016-07-24] MEDS: NIFEdipine 30 MG CR TAB PO SCH (08:50)
[2016-07-24] MEDS: MAGNESIUM OXIDE 400 MG TAB PO SCH (08:51)
[2016-07-24] MEDS: NEBIVOLOL HCL 5 MG TAB PO SCH (08:51)
[2016-07-24] MEDS: EZETIMIBE 10MG TAB PO SCH (08:51)
[2016-07-24] MEDS: OXYBUTYNIN CHLORIDE 5 MG TABCR PO SCH (08:51)
[2016-07-24] MEDS: HYDROXYCHLOROQUINE SULFATE 200 MG TAB PO SCH (08:51)
[2016-07-24] MEDS: PANTOprazole SOD 40 MG TAB PO SCH (08:52)
[2016-07-24] MEDS: ENOXAPARIN 40 MG/0.4 ML SYR SQ SCH (08:53)
[2016-07-24] MEDS: INSULIN ASPART 100 UNITS/ML 3 ML PEN SC SCH ×2 (08:57→12:00)
[2016-07-24] MEDS: INSULIN DETEMIR FLEXPEN/FLEX TOUCH 100 UNITS/ML 3ML SC SCH (08:58)
--- NOTE | 2016-07-24 12:14 | Progress Note ---
Internal Med Progress Note Date of Service: Jul 24, 2016. Provider Documentation: SUBJECTIVE: back pain has improved feels better today Nvaarrete catheter needs to be discontinued prior to Discharge OBJECTIVE: Vital Signs-as noted below Exam: General Appearance: no apparent distress Head: normocephalic, atraumatic Eyes: normal inspection, sclerae normal ENT: hearing grossly normal Neck: supple, trachea midline Respiratory/Chest: lungs clear, normal breath sounds, no respiratory distress Cardiovascular: regular rate, rhythm, no murmur Abdomen/GI: normal bowel sounds, non tender, soft Back: + pertinent finding s/p lumbar decompression/ fusion. surgical incision healing well, paul presents, no drainage or swelling Extremities/Musculoskeletal: normal inspection, no calf tenderness, no pedal edema Neurologic/Psych: alert, normal mood/affect, oriented x 3, no focal neurological deficit Lab data as noted below. ASSESSMENT & PLAN: S/P LUMBAR DECOMPRESSION/ FUSION POD # [address] 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) HISTORY OF LLE DVT (2015) on Coumadin and Lovenox bridge therapy by surgery INR 1.3 can be discharged home with Lovenox bridge will need Coag clinic follow up HYPERTENSION BP stable Continue Bystolic, nifedipine, olmesartan DM TYPE 2 insulin dependent out pt dose : Levemir 26 units bid, Novolog AC sliding scale * A1c = 5.9 % 07/20/16 BSG improved after adjustment of insulin dose added insulin SSI /basal Lantus appreciate pharmacy consult for glycemic control CAD Stable Continue BB, ARB hx of stain intolerance - myalgia with statin COPD Not in acute exacerbation Continue home inhaler HYPOTHYROIDISM Continue levothyroxine DVT PROPHYLAXIS Coumadin /Lovenox bridge tx DISPOSITION per Ortho Vital Signs: Date Time Temp Pulse Resp B/P Pulse Ox O2 Delivery O2 Flow Rate FiO2 07/24/16 06:53 37.0 88 16 101/65 94 Room Air 07/24/16 06:50 Room Air 07/23/16 23:52 Room Air 07/23/16 22:56 37.4 90 16 110/61 94 Room Air 07/23/16 15:30 Room Air 07/23/16 15:00 81 18 112/67 94 Room Air Lab Results: Results Past 24 Hours Test 07/23/16 16:52 07/23/16 18:25 07/23/16 20:43 07/24/16 05:15 Range/Units Bedside Glucose 156 122 70-90 mg/dl Urine Color YELLOW Urine Appearance CLEAR CLEAR Urine pH 7.0 4.5-7.5 Urine Specific [place] 1.002 1.000-1.030 Urine Protein NEG NEG Urine Glucose (UA) NEG NEG Urine Ketones NEG NEG Urine Occult Blood NEG NEG Urine Nitrite NEG NEG Urine Bilirubin NEG NEG Urine Urobilinogen NEG NEG Urine Leukocyte Esterase NEG NEG Prothrombin Time 14.0 9.0-12.0 SECONDS Prothromb Time International Ratio 1.3 0.9-1.1
[2016-07-24] MEDS ORDERED: LVNIS40 SQ (12:18)
--- NOTE | 2016-07-24 12:24 | Progress Note ---
Progress Note ATTENDING NOTE : pt will need to continue Lovenox sub q bridge therapy and Coumadin till INR therapeutic ( 2-3 ) INR 1.3 TODAY will be discharged with therapeutic Lovenox 40 mg Sub q BID -script for 3 days sent to pharmacy pt will continue with previous dose of Coumadin repeat Lab work : PT/INR in 2 days 07/26/16 lab needs to be followed at Family physician office with Dr Elkins for further management of anticoagulation Orthopedics team updated
[2016-07-24 12:31] VITALS: BP 101/65; PULSE 88; TEMP 37; O2SAT 94
--- NOTE | 2016-07-27 14:00 | OPERATIVE REPORT ---
DATE OF OPERATION: 07/19/2016 PREOPERATIVE DIAGNOSES: 1. L3-L4 spinal stenosis. 2. L3-L4 degenerative spondylolisthesis. 3. L4-L5 autofusion. POSTOPERATIVE DIAGNOSIS: Same. PROCEDURES: 1. L3 laminectomy with bilateral L3-L4 medial facetectomies. 2. L3-L4 nonsegmental pedicle screw instrumentation -- bilateral with K2M [place] pedicle screws. 3. L3-L4 posterolateral fusion -- bilateral with Infuse BMP on a collagen sponge, tricalcium phosphate, local bone, bone putty. 4. Right iliac crest bone marrow aspiration stem cell concentration with Arteriocyte and applications of bone graft. SURGEON: Dr. Desai. MEDICINE AND HEALTH SERVICE MANAGER: Iggy Bass PA-C. Please note he participated in all portions of the procedure and was critical for performance of procedure, participated in positioning, prepping, draping, retraction and wound closure. ANESTHESIA: General endotracheal anesthesia. COMPLICATIONS: None. ESTIMATED BLOOD LOSS: Per anesthesia record. OPERATION AND FINDINGS: PROCEDURE: After identification of patient and operative level, she was brought to the OR where she underwent induction of general anesthesia. She was then positioned prone on Rashaun OR table with all bony prominences well padded. Care was taken to avoid pressure on the periorbital area. Lumbosacral area was sterilely prepped and draped in usual fashion. Antibiotics were administered. Time-out was performed. Level was confirmed and skin incision was made from spinous process of L2-L4. Posterior exposure was accomplished. Gelpi retractors were placed and level was confirmed with fluoroscopy. I then did a midline decompression with L3 laminectomy and removal of ligamentum flavum. I used an osteotome and removed medial facets at L3-L4 and then completed decompression with Kerrisons. I palpated the nerve roots were decompressed bilaterally and then placed pedicle screws bilaterally at L3 and L4 with K2M [place] pedicle screws. Screws had modest purchase due to his osteopenia. I lowered the Scout frame to restore lordosis, applied rods and end caps final tightening. I checked position with fluoroscopy. I then irrigated with bacitracin solution. Bone marrow aspirate taken from the right iliac crest via separate stab incision with a Jamshidi needle and concentrated with the Arteriocyte system. I then applied this to bone graft special education professor. I decorticated the transverse process of L3 and L4 with a high speed kitty as well as facets at L3-L4 and packed the lateral gutters with bone graft mixture as above. I did irrigate prior to bone grafting. I then closed in layered fashion over TURNER drain. All sponge and needle counts were correct at the end of the case. I attest to the content of the Intraoperative Record and any orders documented therein. Any exceptio ns are noted below.
--- NOTE | 2016-08-01 14:50 | DISCHARGE SUMMARY ---
PRINCIPAL DIAGNOSIS: Included L3-L4 spinal stenosis and degenerative spondylolisthesis L4-L5 autofusion. POSTOPERATIVE DIAGNOSIS: Same. PROCEDURE: L3-L4 decompression with pedicle screw instrumentation and fusion with bone grafting. SURGEON: Dr. Taqueria Desai. BRAIN SURGEON: Iggy Bass PA-C. HISTORY OF PRESENT ILLNESS: Please refer to EMR. HOSPITAL COURSE: On 07/19/2016, Ms. Sharp was admitted to [facility] with the above diagnoses. She was taken to preoperative holding where she was identified, evaluated and cleared for surgical procedure. She was transported to the operating room, introduced with general endotracheal anesthesia, sterile conditions were set and she successfully underwent the above procedure without complication or issue. She was awakened in stable and satisfactory condition and transported to postoperative recovery. Here her vital signs and pain were monitored and managed. She was then taken to the orthopedic floor for continued postoperative care. Throughout her stay, her vital signs, pain and labs were monitored and managed through physician direction. She participated in physical therapy with good noted progress. There were no complications or iatrogenic issues to note during her hospital admission. On 07/24/2016, after provider evaluation, she was indicated for return home. On this date, she was discharged from [facility]. DISPOSITION: Home. DISPOSITION CONDITION: Stable. NOTED COMPLICATIONS OR ISSUES: Zero. DISCHARGE INSTRUCTIONS: Please refer to EMR.
== END 2016-07-24 14:57 | disposition home health service (06) | DRG 460 ==
LOC: ENRESERV → ENRESERVTM → ENRESERVDT → C.ACU 10:43 → C.3E 12:40
PROVIDERS: ADMIT Orthopaedic Surgery Orthopaedic Surgery of the Spine; ATTEND Orthopaedic Surgery Orthopaedic Surgery of the Spine
PROC: 0SG0071 Fusion of Lumbar Vertebral Joint with Autologous Tissue Substitute, Posterior Approach, Posterior Column, Open Approach (ICD-10-PCS; principal; 2016-07-19 13:30)
PROC: 3E0V0GB Introduction of Recombinant Bone Morphogenetic Protein into Bones, Open Approach (ICD-10-PCS; principal; 2016-07-19 13:30)
PROC: 07DR3ZZ Extraction of Iliac Bone Marrow, Percutaneous Approach (ICD-10-PCS; principal; 2016-07-19 13:30)
DX: M51.26 Other intervertebral disc displacement, lumbar region (principal); I82.502 Chronic embolism and thrombosis of unspecified deep veins of left lower extremity; M43.16 Spondylolisthesis, lumbar region; M48.06 Spinal stenosis, lumbar region; J44.9 Chronic obstructive pulmonary disease, unspecified; I25.10 Atherosclerotic heart disease of native coronary artery without angina pectoris; K21.9 Gastro-esophageal reflux disease without esophagitis; I10 Essential (primary) hypertension; E03.9 Hypothyroidism, unspecified; I65.29 Occlusion and stenosis of unspecified carotid artery; E11.9 Type 2 diabetes mellitus without complications; E78.5 Hyperlipidemia, unspecified; Z86.73 Personal history of transient ischemic attack (TIA), and cerebral infarction without residual deficits; Z96.652 Presence of left artificial knee joint; Z87.891 Personal history of nicotine dependence; Z88.2 Allergy status to sulfonamides; Z79.4 Long term (current) use of insulin